=== PATIENT | male | born 1970 | race Caucasian/White ===

== ENCOUNTER → 2019-04-02 10:17 | Outpatient (CLI) | payer OTHER, SELFPAY ==
[2019-04-01 17:44] VITALS: BMI 65.6
== END ==
PROVIDERS: Referring Provider Physician Assistant; Visit Provider Physician Assistant
DX: T14.8XXA Other injury of unspecified body region, initial encounter (principal)
CPT/HCPCS: 87070; 87077; 87186; 87205

== ENCOUNTER 2020-07-02 09:15 | Outpatient (RCR) | payer OTHER, SELFPAY ==
[2019-04-01 17:44] VITALS: BMI 65.6
[2020-06-11 09:14] VITALS: BP 134/56; PULSE 50; RESP 24; TEMP 37; BMI 65.7
--- NOTE | 2020-06-11 12:21 | PCM.WC.HP ---
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 with fat layer exposed (2) Ulcer of lower extremity with fat layer exposed Status: Acute Qualifiers: Laterality: left Qualified Code(s): L97.922 - Non-pressure chronic ulcer of unspecified part of left lower leg with fat layer exposed Code(s): L97.902 - Non-pressure chronic ulcer of unspecified part of unspecified lower leg with fat layer exposed (3) Left leg cellulitis Status: Acute Code(s): L03.116 - Cellulitis of left lower limb (4) Morbid obesity with BMI of 60.0-69.9, adult Status: Acute Code(s): E66.01 - Morbid (severe) obesity due to excess calories; Z68.44 - Body mass index [BMI] 60.0-69.9, adult (5) Type 2 diabetes mellitus Status: Chronic Code(s): E11.9 - Type 2 diabetes mellitus without complications History of Present Illness Date of Service: 06/11/20 Chief Complaint: Non healing left lower extremity ulcer History of Wound: Mr. Spivey is a 49-year old who was referred to the wound center due to nonhealing right leg ulcers. Ulceration started after right lower extremity cellulitis. Currently on antibiotics. Measures at home have not been helpful. Reports lower extremity pain typically at the end of the day. Tried Tubigrip's for compression. At this time, denies chills, fever or otherwise feeling of unwell. Type 2 diabetes mellitus, recent A1c down from 8.2-7.2. Currently on Metformin which he reports compliance with. Past Medical History Past Medical History: Chronic Problems (Last Updated 04/01/19 @ 17:47 by Roz Medellin) Type 2 diabetes mellitus (Chronic) Allergies/Adverse Reactions: Allergies glipizide Adverse Reaction (Verified 06/11/20 09:39) Hives Home Medications: Ambulatory Orders Medication Instructions Recorded hydrochlorothiazide 25 mg tablet PO 04/01/19 losartan 100 mg tablet PO 04/01/19 metoprolol succinate 200 mg PO 04/01/19 tablet,extended release 24 hr naproxen sodium 220 mg capsule 220 mg PO BID PRN 04/01/19 spironolactone 50 mg tablet PO 04/01/19 Amoxicillin 875 mg PO BID 06/11/20 Bumetanide 2 mg PO 06/11/20 Gabapentin 300 mg PO 06/11/20 metFORMIN (XR) [Glucophage Xr] 1,000 mg PO BID 06/11/20 Smoking Status: Never smoker Review of Systems Constitutional: Denies: Anorexia, Chills, Fever, Malaise, Weakness Eyes: Denies: Blurred vision, Pain, Redness HEENT: Denies: Difficulty Hearing, Difficulty Swallowing, Eye Pain Cardiovascular: Denies: Chest Pain, Claudication, Orthopnea, Palpitations Respiratory: Denies: Cough, Hemoptysis, Pleuritic Pain Gastrointestinal: Denies: Abdominal Pain, Hematemesis, Vomiting Genitourinary: Denies: Hematuria - Physical Exam Vital Signs Temp Pulse Resp BP 98.6 F 50 L 24 H 134/56 H 06/11/20 09:14 06/11/20 09:14 06/11/20 09:14 06/11/20 09:14 General: Alert, Oriented x3, Cooperative, No apparent distress HEENT: Atraumatic, Normocephalic Oral: Moist Mucosa Neck: Supple, No JVD Lungs: Normal air movement Abdomen: Obese Extremities: No cyanosis, Edema Skin: Ulcer/ Wound Wound Measurements and Assessment WC - Nurse 1 - General Ulcer Measurement Start: 06/11/20 09:01 Freq: Status: Active Protocol: Activity Type Activity Date Activity User E-Sign Co-Sign Detail Recorded Client Recorded Date Recorded By Document 06/11/20 09:14 DL [id number] 06/11/20 09:35 DL 06/11/20 09:14 Wound Center Nurse 1 [Ulcer Assessment] #1 LLE Cluster -Current Size (cm) - Length 19 -Current Size (cm) - Width 19 -Current Size (cm) - Depth 0.1 -Total Square Cm 361 -Photo Taken Yes -Exudate Amt Medium -Exudate Type Serosanguineous -Wound Margin Indistinct, Non -Visible -Granulation Amt Medium (34-66%) -Granulation Quality Red -Necrosis Amt Medium (34-66%) -Necrotic Tissue Type Adherent Slough -Structure Exposed N/A -Texture (Erna-wound Skin Appearance) Localized Edema -Moisture (Erna-wound Skin Appearance Weeping ) -Color (Erna-wound Skin Appearance) Erythema, Hemosiderin Staining -Temperature (Erna-wound Skin No Abnormality Appearance) (Pt Warm) -Tenderness on Palpation (Erna-wound Yes Skin Appearance) -Ulcer Cleansing Wound Cleanser -Foul Odor after Cleansing No -Anesthetic Used 4% Lidocaine Solution [Edema Assessment] -Right Calf (cm) 52.5 -Right Ankle (cm) 29 -Left Calf (cm) 50.3 -Left Ankle (cm) 28.6 WC - Nurse 2 - General Ulcer CM Notes Start: 06/11/20 09:01 Freq: Status: Active Protocol: Activity Type Activity Date Activity User E-Sign Co-Sign Detail Recorded Client Recorded Date Recorded By Document 06/11/20 09:57 MW [id number] 06/11/20 10:04 MW 06/11/20 09:57 Wound Center Nurse 2 [Procedure/Treatment] #1 LLE Cluster -Time 09:58 -Correct Patient Yes -Correct Side, Site, Position Yes -Correct Procedure Yes -Procedure Performed Yes -Type of Procedure Debridement -Clinical Debridement Subcutaneous -Tissue Removed Subcutaneous -Post Debridement (cm) - Length 17.0 -Post Debridement (cm) - Width 20.0 -Post Debridement (cm) - Depth 0.1 -Total Square (Post) (cm) 340.00 -Area of Debridement (cm) - Length 17.0 -Area of Debridement (cm) - Width 20.0 -Total Square (Area) (cm) 340.00 -Tunneling No -Undermining/Tunneling No -Circular Undermining No -Wound/Ulcer Outcome Not Healed -Ulcer Cleansing Rinsed/ Irrigated with Saline -Foul Odor after Cleansing No -Bioengineered Tissue No -Bleeding Controlled with Pressure -Offloading No -Treatment Response Procedure Tolerated Well -Debridement - Subq, 1st 20sq cm Yes -Debridement, SubQ, ea addt'l 20sq cm 16 or part thereof [See Physician Procedure note for Specifics] Pain Scale: 0-10 Numeric [Pain] -Is Patient Pain Free? Yes RHIANNON - Nurse 3 - General Ulcer D/C NN Start: 06/11/20 09:01 Freq: Status: Active Protocol: Activity Type Activity Date Activity User E-Sign Co-Sign Detail Recorded Client Recorded Date Recorded By Document 06/11/20 10:19 MS [id number] 06/11/20 10:21 MS 06/11/20 10:19 Wound Care Nurse 3 [Wound Dressing] #1 LLE Cluster -Ulcer Cleansing Rinsed/ Irrigated with Saline -Primary Dressing Applied Aquacel Extra -Other Dressing xeroform,abd -Aquacel Extra 1 [Compression Applied] Left -Multi-Layered Wrap Application Multi-Layer Comp - Left ($) WC - Visit Discharge [Visit Discharge Information] -Discharge Condition Stable -Ambulatory Status Ambulatory -Medication Reconcilliation completed No & provided to patient/care provider -Clinical Summary of Care Provided Yes Musculoskeletal: No Muscle Wasting Neurological: Cranial nerves II-XII grossly intact Psych/Mental Status: Normal Affect Debridement Note Post-Debridement Measurements/Treatment - Nurse 2 - General Ulcer CM Notes Start: 06/11/20 09:01 Freq: Status: Active Protocol: Activity Type Activity Date Activity User E-Sign Co-Sign Detail Recorded Client Recorded Date Recorded By Document 06/11/20 09:57 MW [id number] 06/11/20 10:04 MW 06/11/20 09:57 Wound Center Nurse 2 #1 LLE Cluster -Time 09:58 -Correct Patient Yes -Correct Side, Site, Position Yes -Correct Procedure Yes -Procedure Performed Yes -Type of Procedure Debridement -Clinical Debridement Subcutaneous -Tissue Removed Subcutaneous -Post Debridement (cm) - Length 17.0 -Post Debridement (cm) - Width 20.0 -Post Debridement (cm) - Depth 0.1 -Total Square (Post) (cm) 340.00 -Area of Debridement (cm) - Length 17.0 -Area of Debridement (cm) - Width 20.0 -Total Square (Area) (cm) 340.00 -Tunneling No -Undermining/Tunneling No -Circular Undermining No -Wound/Ulcer Outcome Not Healed -Ulcer Cleansing Rinsed/ Irrigated with Saline -Foul Odor after Cleansing No -Bioengineered Tissue No -Bleeding Controlled with Pressure -Offloading No -Treatment Response Procedure Tolerated Well -Debridement - Subq, 1st 20sq cm Yes -Debridement, SubQ, ea addt'l 20sq cm 16 or part thereof Pain Scale: 0-10 Numeric Is Patient Pain Free? Yes - Nurse 3 - General Ulcer D/C NN Start: 06/11/20 09:01 Freq: Status: Active Protocol: Activity Type Activity Date Activity User E-Sign Co-Sign Detail Recorded Client Recorded Date Recorded By Document 06/11/20 10:19 MS [id number] 06/11/20 10:21 MS 06/11/20 10:19 Wound Care Nurse 3 #1 LLE Cluster -Ulcer Cleansing Rinsed/ Irrigated with Saline -Primary Dressing Applied Aquacel Extra -Other Dressing xeroform,abd -Aquacel Extra 1 Left -Multi-Layered Wrap Application Multi-Layer Comp - Left ($) WC - Visit Discharge Discharge Condition Stable Ambulatory Status Ambulatory Medication Reconcilliation completed & No provided to patient/care provider Clinical Summary of Care Provided Yes Wound debrided: Left leg cluster Type of Debridement: Excisional debridement Anesthesia Used: 4% Lidocaine Solution, 5% Lidocaine Gel Depth: Down to and including healthy tissue, in the subcutaneous layer Percentage of wound debrided: 100 Instrument Used: 5mm curette Tissue Removed: Slough and devitalized tissue Severity: Fat Layer Exposed Amount of bleeding with debridement: Mild Bleeding Controlled with: Pressure Patient tolerated procedure well Assessment/Plan Active Problems (Last Updated 04/01/19 @ 17:47 by Roz Medellin) Morbid obesity with BMI of 60.0-69.9, adult (Acute) Ulcer of lower extremity with fat layer exposed (Acute) Ulcer of left lower extremity with fat layer exposed (Acute) Left leg cellulitis (Acute) Assessment: Left lower extremity cluster ulcer secondary to left lower extremity cellulitis. Morbid obesity. Type 2 diabetes mellitus. Plan: Debridement done as documented above. Procedure was well-tolerated. Promogran with Adaptic over top. 3M wrap for edema management. Follow-up on Monday for nurse visit. Elevate lower extremities when seated and in bed. Exercise as tolerated. Increase protein intake, zinc and vitamin C. Optimal diabetes control recommended. His questions were answered and he was advised to call with any further questions or concerns. Follow-up in a week. This note was generated with [employer] dictation software. It may contain incorrect words, spelling, and punctuation that were not noted in checking the note before signing. Multi Select Codes - Visit Charges Office Visit/Consults: 95689 OV L3 New - Integumentary Integumentary CPT Codes: 35426 Faviola subq tissue 20 sq cm/< - Additional square centimeters debrided, please refer to clinical note.
[2020-06-15 11:05] VITALS: BP 139/49; PULSE 56; RESP 16; TEMP 35.5; BMI 65.7
[2020-06-18 08:55] VITALS: BP 120/45; PULSE 53; RESP 18; TEMP 36.4; BMI 65.7
--- NOTE | 2020-06-18 09:21 | PN.PCM_ITS ---
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 with fat layer exposed (2) Ulcer of lower extremity with fat layer exposed Status: Acute Qualifiers: Laterality: left Qualified Code(s): L97.922 - Non-pressure chronic ulcer of unspecified part of left lower leg with fat layer exposed Code(s): L97.902 - Non-pressure chronic ulcer of unspecified part of unspecified lower leg with fat layer exposed (3) Left leg cellulitis Status: Acute Code(s): L03.116 - Cellulitis of left lower limb (4) Morbid obesity with BMI of 60.0-69.9, adult Status: Acute Code(s): E66.01 - Morbid (severe) obesity due to excess calories; Z68.44 - Body mass index [BMI] 60.0-69.9, adult (5) Type 2 diabetes mellitus Status: Chronic Code(s): E11.9 - Type 2 diabetes mellitus without complications Type of Wound Date of Service: 06/18/20 Chief Complaint: Non healing left lower extremity ulcer History of Wound: Mr. Spivey is a 49-year old who was referred to the wound center due to nonhealing right leg ulcers. Ulceration started after right lower extremity cellulitis. Currently on antibiotics. Measures at home have not been helpful. Reports lower extremity pain typically at the end of the day. Tried Tubigrip's for compression. At this time, denies chills, fever or otherwise feeling of unwell. Type 2 diabetes mellitus, recent A1c down from 8.2-7.2. Currently on Metformin which he reports compliance with. Progress of Wound: Improving, no new concerns at this time. - Physical Exam Vital Signs Temp Pulse Resp BP 97.6 F L 53 L 18 120/45 L 06/18/20 08:55 06/18/20 08:55 06/18/20 08:55 06/18/20 08:55 General: Alert, Oriented x3, Cooperative, No apparent distress HEENT: Atraumatic, Normocephalic Oral: Moist Mucosa Neck: Supple Lungs: Normal air movement Abdomen: Non Tender, Obese Extremities: No cyanosis, Edema Skin: Ulcer/ Wound Wound Measurements and Assessment WC - Nurse 1 - General Ulcer Measurement Start: 06/11/20 09:01 Freq: Status: Active Protocol: Activity Type Activity Date Activity User E-Sign Co-Sign Detail Recorded Client Recorded Date Recorded By Document 06/15/20 11:05 [facility] [id number] 06/15/20 11:07 [facility] Document 06/18/20 08:55 MS [id number] 06/18/20 09:04 MS 06/15/20 06/18/20 11:05 08:55 [Ulcer Assessment] #1 LLE Cluster -Current Size (cm) - Length 12 -Current Size (cm) - Width 14 -Current Size (cm) - Depth 0.1 -Total Square Cm 168 -Exudate Amt Small -Exudate Type Serosanguineous -Granulation Amt Medium (34-66%) -Necrosis Amt Medium (34-66%) -Texture (Erna-wound Skin Appearance) No Abnormality -Moisture (Erna-wound Skin Appearance No Abnormality ) -Color (Erna-wound Skin Appearance) No Abnormality -Temperature (Erna-wound Skin No Abnormality Appearance) (Pt Warm) -Tenderness on Palpation (Erna-wound No Skin Appearance) -Ulcer Cleansing Wound Cleanser -Foul Odor after Cleansing No -Anesthetic Used 4% Lidocaine Solution Wound Center Nurse 1 [Edema Assessment] -Lower Limb Edema Present Yes -Left Calf (cm) 54.8 52 -Left Ankle (cm) 27.5 25 WC - Nurse 2 - General Ulcer CM Notes Start: 06/11/20 09:01 Freq: Status: Active Protocol: Activity Type Activity Date Activity User E-Sign Co-Sign Detail Recorded Client Recorded Date Recorded By Document 06/18/20 09:16 MW [id number] 06/18/20 09:19 MW 06/18/20 09:16 Wound Center Nurse 2 [Procedure/Treatment] #1 LLE Cluster -Time 09:16 -Correct Patient Yes -Correct Side, Site, Position Yes -Correct Procedure Yes -Procedure Performed Yes -Type of Procedure Debridement -Clinical Debridement Subcutaneous -Tissue Removed Subcutaneous -Post Debridement (cm) - Length 17.0 -Post Debridement (cm) - Width 10.0 -Post Debridement (cm) - Depth 0.1 -Total Square (Post) (cm) 170.00 -Area of Debridement (cm) - Length 17.0 -Area of Debridement (cm) - Width 10.0 -Total Square (Area) (cm) 170.00 -Tunneling No -Undermining/Tunneling No -Circular Undermining No -Wound/Ulcer Outcome Not Healed -Ulcer Cleansing Rinsed/ Irrigated with Saline -Foul Odor after Cleansing No -Bioengineered Tissue No -Bleeding Controlled with Pressure -Offloading No -Treatment Response Procedure Tolerated Well -Debridement - Subq, 1st 20sq cm Yes -Debridement, SubQ, ea addt'l 20sq cm 8 or part thereof [See Physician Procedure note for Specifics] Pain Scale: 0-10 Numeric [Pain] -Is Patient Pain Free? Yes - Nurse 3 - General Ulcer D/C NN Start: 06/11/20 09:01 Freq: Status: Active Protocol: Activity Type Activity Date Activity User E-Sign Co-Sign Detail Recorded Client Recorded Date Recorded By Document 06/15/20 11:05 [facility] [id number] 06/15/20 11:07 [facility] 06/15/20 11:05 Vital Signs [Temperature Protocol: VS] -Temperature (97.8 F-99.1 F) 95.9 F L -Temperature Source Temporal [Pulse] -Pulse Rate (60-100 beats/min) 56 L -Pulse Location Monitor [Respirations] -Respiratory Rate (12-18 breaths/min) 16 -Respiratory rate source Observation -Oxygen Delivery Method Room Air [Blood Pressure] -Blood Pressure (90/60-120/80 mm Hg) 139/49 H -Blood Pressure Mean (mm Hg) 79 -Source Monitor -Position Sitting -Blood Pressure Location Left Arm Pain Scale: 0-10 Numeric [Pain] -Is Patient Pain Free? Yes Wound Care Nurse 3 [Wound Dressing] #1 LLE Cluster -Ulcer Cleansing soapy water -Foul Odor after Cleansing No -Primary Dressing Applied Aquacel Extra, NonAdherent Contact Layer -Other Dressing xeroform to reddened areas -Primary Dressing Covered/Secured Dry Gauze,Other with -Other Covering abd -Aquacel Extra 1 [Compression Applied] Left -Multi-Layered Wrap Application Multi-Layer Comp - Left ($) [Post Procedure Tolerated] -Treatment Response Procedure Tolerated Well WC - Visit Discharge [Visit Discharge Information] -Discharge Condition Stable -Ambulatory Status Ambulatory -Transportation Private Auto Musculoskeletal: No Muscle Wasting Neurological: Cranial nerves II-XII grossly intact Psych/Mental Status: Normal Affect Debridement Note Post-Debridement Measurements/Treatment - Nurse 2 - General Ulcer CM Notes Start: 06/11/20 09:01 Freq: Status: Active Protocol: Activity Type Activity Date Activity User E-Sign Co-Sign Detail Recorded Client Recorded Date Recorded By Document 06/11/20 09:57 MW [id number] 06/11/20 10:04 MW Document 06/18/20 09:16 MW [id number] 06/18/20 09:19 MW 06/11/20 06/18/20 09:57 09:16 Wound Center Nurse 2 #1 LLE Cluster -Time 09:58 09:16 -Correct Patient Yes Yes -Correct Side, Site, Position Yes Yes -Correct Procedure Yes Yes -Procedure Performed Yes Yes -Type of Procedure Debridement Debridement -Clinical Debridement Subcutaneous Subcutaneous -Tissue Removed Subcutaneous Subcutaneous -Post Debridement (cm) - Length 17.0 17.0 -Post Debridement (cm) - Width 20.0 10.0 -Post Debridement (cm) - Depth 0.1 0.1 -Total Square (Post) (cm) 340.00 170.00 -Area of Debridement (cm) - Length 17.0 17.0 -Area of Debridement (cm) - Width 20.0 10.0 -Total Square (Area) (cm) 340.00 170.00 -Tunneling No No -Undermining/Tunneling No No -Circular Undermining No No -Wound/Ulcer Outcome Not Healed Not Healed -Ulcer Cleansing Rinsed/ Rinsed/ Irrigated with Irrigated with Saline Saline -Foul Odor after Cleansing No No -Bioengineered Tissue No No -Bleeding Controlled with Pressure Pressure -Offloading No No -Treatment Response Procedure Procedure Tolerated Well Tolerated Well -Debridement - Subq, 1st 20sq cm Yes Yes -Debridement, SubQ, ea addt'l 20sq cm 16 8 or part thereof Pain Scale: 0-10 Numeric Is Patient Pain Free? Yes Yes WC - Nurse 3 - General Ulcer D/C NN Start: 06/11/20 09:01 Freq: Status: Active Protocol: Activity Type Activity Date Activity User E-Sign Co-Sign Detail Recorded Client Recorded Date Recorded By Document 06/11/20 10:19 MS [id number] 06/11/20 10:21 MS Document 06/15/20 11:05 [facility] [id number] 06/15/20 11:07 [facility] 06/11/20 06/15/20 10:19 11:05 Wound Care Nurse 3 #1 LLE Cluster -Ulcer Cleansing Rinsed/ soapy water Irrigated with Saline -Foul Odor after Cleansing No -Primary Dressing Applied Aquacel Extra Aquacel Extra, NonAdherent Contact Layer -Other Dressing xeroform,abd xeroform to reddened areas -Primary Dressing Covered/Secured with Dry Gauze,Other -Other Covering abd -Aquacel Extra 1 1 Left -Multi-Layered Wrap Application Multi-Layer Multi-Layer Comp - Left ($) Comp - Left ($) Treatment Response Procedure Tolerated Well Vital Signs Temperature (97.8 F-99.1 F) 95.9 F L Temperature Source Temporal Pulse Rate (60-100 beats/min) 56 L Pulse Location Monitor Respiratory Rate (12-18 breaths/min) 16 Respiratory rate source Observation Oxygen Delivery Method Room Air Blood Pressure (90/60-120/80 mm Hg) 139/49 H Blood Pressure Mean (mm Hg) 79 Source Monitor Position Sitting Blood Pressure Location Left Arm Pain Scale: 0-10 Numeric Is Patient Pain Free? Yes WC - Visit Discharge Discharge Condition Stable Stable Ambulatory Status Ambulatory Ambulatory Transportation Private Auto Medication Reconcilliation completed & No provided to patient/care provider Clinical Summary of Care Provided Yes Wound debrided: Lower extremity cluster Type of Debridement: Excisional debridement Anesthesia Used: 4% Lidocaine Solution Depth: Down to and including healthy tissue, in the subcutaneous layer Percentage of wound debrided: 100 Instrument Used: 5mm curette Tissue Removed: Slough and devitalized tissue Severity: Fat Layer Exposed Amount of bleeding with debridement: Mild Bleeding Controlled with: Pressure Patient tolerated procedure well Assessment/Plan Active Problems (Last Updated 04/01/19 @ 17:47 by Roz Medellin) Morbid obesity with BMI of 60.0-69.9, adult (Acute) Ulcer of lower extremity with fat layer exposed (Acute) Ulcer of left lower extremity with fat layer exposed (Acute) Left leg cellulitis (Acute) Type 2 diabetes mellitus (Chronic) Assessment: Left lower extremity cluster ulcer secondary to left lower extremity cellulitis. Morbid obesity. Type 2 diabetes mellitus. Plan: Debridement done as documented above. Procedure was well-tolerated. Promogran with Xeroform to reddened areas. 3M wrap for edema management. Elevate lower extremities when seated and in bed. Exercise as tolerated. Increase protein intake, zinc and vitamin C. Optimal diabetes control recommended. His questions were answered and he was advised to call with any further questions or concerns. Follow-up in a week. This note was generated with [employer] software. It may contain incorrect words, spelling, and punctuation that were not noted in checking the note before signing. [id number]: [id number] Faviola subq tissue 20 sq cm/< Add On Codes: 83117 Faviola subq tissue add-on
[2020-06-25 10:05] VITALS: BP 128/74; PULSE 59; TEMP 36.2; BMI 65.7
--- NOTE | 2020-06-25 11:13 | PCM.WC.PN ---
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 with fat layer exposed (2) Ulcer of lower extremity with fat layer exposed Status: Acute Qualifiers: Laterality: left Qualified Code(s): L97.922 - Non-pressure chronic ulcer of unspecified part of left lower leg with fat layer exposed Code(s): L97.902 - Non-pressure chronic ulcer of unspecified part of unspecified lower leg with fat layer exposed (3) Left leg cellulitis Status: Acute Code(s): L03.116 - Cellulitis of left lower limb (4) Morbid obesity with BMI of 60.0-69.9, adult Status: Acute Code(s): E66.01 - Morbid (severe) obesity due to excess calories; Z68.44 - Body mass index [BMI] 60.0-69.9, adult (5) Type 2 diabetes mellitus Status: Chronic Code(s): E11.9 - Type 2 diabetes mellitus without complications Type of Wound Date of Service: 06/25/20 Chief Complaint: Non healing left lower extremity ulcer History of Wound: Mr. Spivey is a 49-year old who was referred to the wound center due to nonhealing right leg ulcers. Ulceration started after right lower extremity cellulitis. Currently on antibiotics. Measures at home have not been helpful. Reports lower extremity pain typically at the end of the day. Tried Tubigrip's for compression. At this time, denies chills, fever or otherwise feeling of unwell. Type 2 diabetes mellitus, recent A1c down from 8.2-7.2. Currently on Metformin which he reports compliance with. Progress of Wound: Improving, no new concerns at this time. Minimal area left - Physical Exam Vital Signs Temp Pulse Resp BP 97.2 F L 59 L 18 128/74 H 06/25/20 10:05 06/25/20 10:05 06/18/20 08:55 06/25/20 10:05 General: Alert, Oriented x3, Cooperative, No apparent distress HEENT: Atraumatic, Normocephalic Oral: Moist Mucosa Neck: Supple Lungs: Normal air movement Abdomen: Non Tender, Obese Extremities: No cyanosis, Edema Skin: Ulcer/ Wound Wound Measurements and Assessment WC - Nurse 1 - General Ulcer Measurement Start: 06/11/20 09:01 Freq: Status: Active Protocol: Activity Type Activity Date Activity User E-Sign Co-Sign Detail Recorded Client Recorded Date Recorded By Document 06/25/20 10:05 KR [id number] 06/25/20 10:13 KR 06/25/20 10:05 Wound Center Nurse 1 [Ulcer Assessment] #1 LLE Cluster -Current Size (cm) - Length 12 -Current Size (cm) - Width 8 -Current Size (cm) - Depth 0.1 -Total Square Cm 96 -Exudate Amt None Present -Wound Margin Distinct, Outline Attached -Granulation Amt Large (67-100%) -Granulation Quality Red -Necrosis Amt None Present (0 %) -Texture (Erna-wound Skin Appearance) Assessed -Moisture (Erna-wound Skin Appearance No Abnormality, ) Assessed -Color (Erna-wound Skin Appearance) No Abnormality, Assessed -Temperature (Erna-wound Skin No Abnormality Appearance) (Pt Warm) -Tenderness on Palpation (Erna-wound No Skin Appearance) -Ulcer Cleansing soap and water -Foul Odor after Cleansing No -Anesthetic Used 4% Lidocaine Solution [Edema Assessment] -Left Calf (cm) 51 -Left Ankle (cm) 32 WC - Nurse 2 - General Ulcer CM Notes Start: 06/11/20 09:01 Freq: Status: Active Protocol: Activity Type Activity Date Activity User E-Sign Co-Sign Detail Recorded Client Recorded Date Recorded By Document 06/25/20 10:38 MW [id number] 06/25/20 10:39 MW 06/25/20 10:38 Wound Center Nurse 2 [Procedure/Treatment] #1 LLE Cluster -Time 10:38 -Correct Patient Yes -Correct Side, Site, Position Yes -Correct Procedure Yes -Procedure Performed No -Tunneling No -Undermining/Tunneling No -Circular Undermining No -Wound/Ulcer Outcome Not Healed [See Physician Procedure note for Specifics] Pain Scale: 0-10 Numeric [Pain] -Is Patient Pain Free? Yes Musculoskeletal: No Muscle Wasting Neurological: Cranial nerves II-XII grossly intact Psych/Mental Status: Normal Affect Debridement Note Post-Debridement Measurements/Treatment WC - Nurse 2 - General Ulcer CM Notes Start: 06/11/20 09:01 Freq: Status: Active Protocol: Activity Type Activity Date Activity User E-Sign Co-Sign Detail Recorded Client Recorded Date Recorded By Document 06/11/20 09:57 MW [id number] 06/11/20 10:04 MW Document 06/18/20 09:16 MW [id number] 06/18/20 09:19 MW Document 06/25/20 10:38 MW [id number] 06/25/20 10:39 MW 06/11/20 06/18/20 06/25/20 09:57 09:16 10:38 Wound Center Nurse 2 #1 LLE Cluster -Time 09:58 09:16 10:38 -Correct Patient Yes Yes Yes -Correct Side, Site, Position Yes Yes Yes -Correct Procedure Yes Yes Yes -Procedure Performed Yes Yes No -Type of Procedure Debridement Debridement -Clinical Debridement Subcutaneous Subcutaneous -Tissue Removed Subcutaneous Subcutaneous -Post Debridement (cm) - Length 17.0 17.0 -Post Debridement (cm) - Width 20.0 10.0 -Post Debridement (cm) - Depth 0.1 0.1 -Total Square (Post) (cm) 340.00 170.00 -Area of Debridement (cm) - Length 17.0 17.0 -Area of Debridement (cm) - Width 20.0 10.0 -Total Square (Area) (cm) 340.00 170.00 -Tunneling No No No -Undermining/Tunneling No No No -Circular Undermining No No No -Wound/Ulcer Outcome Not Healed Not Healed Not Healed -Ulcer Cleansing Rinsed/ Rinsed/ Irrigated with Irrigated with Saline Saline -Foul Odor after Cleansing No No -Bioengineered Tissue No No -Bleeding Controlled with Pressure Pressure -Offloading No No -Treatment Response Procedure Procedure Tolerated Well Tolerated Well -Debridement - Subq, 1st 20sq cm Yes Yes -Debridement, SubQ, ea addt'l 20sq cm 16 8 or part thereof Pain Scale: 0-10 Numeric Is Patient Pain Free? Yes Yes Yes WC - Nurse 3 - General Ulcer D/C NN Start: 06/11/20 09:01 Freq: Status: Active Protocol: Activity Type Activity Date Activity User E-Sign Co-Sign Detail Recorded Client Recorded Date Recorded By Document 06/11/20 10:19 MS [id number] 06/11/20 10:21 MS Document 06/15/20 11:05 BM [id number] 06/15/20 11:07 BMF Document 06/18/20 09:45 MT [id number] 06/18/20 09:47 MT 06/11/20 06/15/20 06/18/20 10:19 11:05 09:45 Wound Care Nurse 3 #1 LLE Cluster -Ulcer Cleansing Rinsed/ soapy water Rinsed/ Irrigated with Irrigated with Saline Saline -Foul Odor after Cleansing No -Primary Dressing Applied Aquacel Extra Aquacel Extra, Aquacel Extra NonAdherent Contact Layer -Other Dressing xeroform,abd xeroform to xeroform reddened areas -Primary Dressing Covered/Secured with Dry Gauze,Other Secured with Tape -Other Covering abd -Aquacel Extra 1 1 1 Left -Multi-Layered Wrap Application Multi-Layer Multi-Layer Multi-Layer Comp - Left ($) Comp - Left ($) Comp - Left ($) Treatment Response Procedure Tolerated Well Vital Signs Temperature (97.8 F-99.1 F) 95.9 F L Temperature Source Temporal Pulse Rate (60-100 beats/min) 56 L Pulse Location Monitor Respiratory Rate (12-18 breaths/min) 16 Respiratory rate source Observation Oxygen Delivery Method Room Air Blood Pressure (90/60-120/80 mm Hg) 139/49 H Blood Pressure Mean (mm Hg) 79 Source Monitor Position Sitting Blood Pressure Location Left Arm Pain Scale: 0-10 Numeric Is Patient Pain Free? Yes WC - Visit Discharge Discharge Condition Stable Stable Stable Ambulatory Status Ambulatory Ambulatory Ambulatory Transportation Private Auto Private Auto Medication Reconcilliation completed & No No provided to patient/care provider Clinical Summary of Care Provided Yes Yes Notes: keep 3m clean and dry. cover when shower, call if their are any issues. No debridement was completed today Assessment/Plan Active Problems (Last Updated 04/01/19 @ 17:47 by Roz Medellin) Morbid obesity with BMI of 60.0-69.9, adult (Acute) Ulcer of lower extremity with fat layer exposed (Acute) Ulcer of left lower extremity with fat layer exposed (Acute) Left leg cellulitis (Acute) Type 2 diabetes mellitus (Chronic) Assessment: Left lower extremity cluster ulcer secondary to left lower extremity cellulitis. Morbid obesity. Type 2 diabetes mellitus. Plan: Minimal area left, no debridement completed today. Moisturize lower extremity adequately. Adaptic and gauze with 3M wrap for edema management. Elevate lower extremities when seated and in bed. Exercise as tolerated. Increase protein intake, zinc and vitamin C. Optimal diabetes control recommended. His questions were answered and he was advised to call with any further questions or concerns. Follow-up in a week. This note was generated with [employer] dictation software. It may contain incorrect words, spelling, and punctuation that were not noted in checking the note before signing. Office Visits / Consults: [id number] OV L3 Est
[2020-07-02 09:14] VITALS: BP 122/38; PULSE 48; RESP 22; TEMP 36.3; BMI 65.7
--- NOTE | 2020-07-02 10:33 | PCM.WC.PN ---
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 with fat layer exposed (2) Ulcer of lower extremity with fat layer exposed Status: Acute Qualifiers: Laterality: left Qualified Code(s): L97.922 - Non-pressure chronic ulcer of unspecified part of left lower leg with fat layer exposed Code(s): L97.902 - Non-pressure chronic ulcer of unspecified part of unspecified lower leg with fat layer exposed (3) Left leg cellulitis Status: Acute Code(s): L03.116 - Cellulitis of left lower limb (4) Morbid obesity with BMI of 60.0-69.9, adult Status: Acute Code(s): E66.01 - Morbid (severe) obesity due to excess calories; Z68.44 - Body mass index [BMI] 60.0-69.9, adult (5) Type 2 diabetes mellitus Status: Chronic Code(s): E11.9 - Type 2 diabetes mellitus without complications Type of Wound Date of Service: 07/02/20 Chief Complaint: Non healing left lower extremity ulcer History of Wound: Mr. Spivey is a 49-year old who was referred to the wound center due to nonhealing right leg ulcers. Ulceration started after right lower extremity cellulitis. Currently on antibiotics. Measures at home have not been helpful. Reports lower extremity pain typically at the end of the day. Tried Tubigrip's for compression. At this time, denies chills, fever or otherwise feeling of unwell. Type 2 diabetes mellitus, recent A1c down from 8.2-7.2. Currently on Metformin which he reports compliance with. Progress of Wound: Healed. No new concerns at this time. - Physical Exam Vital Signs Temp Pulse Resp BP 97.3 F L 48 L 22 H 122/38 H 07/02/20 09:14 07/02/20 09:14 07/02/20 09:14 07/02/20 09:14 General: Alert, Oriented x3, Cooperative, No apparent distress HEENT: Atraumatic, Normocephalic Oral: Moist Mucosa Neck: Supple Lungs: Normal air movement Abdomen: Obese Extremities: No cyanosis, Edema Wound Measurements and Assessment WC - Nurse 1 - General Ulcer Measurement Start: 06/11/20 09:01 Freq: Status: Discharge Protocol: Activity Type Activity Date Activity User E-Sign Co-Sign Detail Recorded Client Recorded Date Recorded By Document 07/02/20 09:14 DL [id number] 07/02/20 09:26 DL Edit Status 07/02/20 10:07 BKG DAEMON Active=>Discharge [facility] 07/02/20 10:07 BKG DAEMON 07/02/20 09:14 Wound Center Nurse 1 [Ulcer Assessment] #1 LLE Cluster -Current Size (cm) - Length 0 -Current Size (cm) - Width 0 -Current Size (cm) - Depth 0 -Total Square Cm 0 -Photo Taken Yes -Exudate Amt None Present -Wound Margin Flat & Intact -Granulation Amt None Present (0 %) -Granulation Quality [place] -Necrosis Amt None Present (0 %) -Structure Exposed N/A -Moisture (Erna-wound Skin Appearance Dry/Scaly ) -Color (Erna-wound Skin Appearance) Hemosiderin Staining -Temperature (Erna-wound Skin No Abnormality Appearance) (Pt Warm) -Tenderness on Palpation (Erna-wound No Skin Appearance) -Ulcer Cleansing Wound Cleanser -Foul Odor after Cleansing No -Anesthetic Used 4% Lidocaine Solution [Edema Assessment] -Right Calf (cm) 54 -Right Ankle (cm) 27.5 WC - Nurse 2 - General Ulcer CM Notes Start: 06/11/20 09:01 Freq: Status: Discharge Protocol: Activity Type Activity Date Activity User E-Sign Co-Sign Detail Recorded Client Recorded Date Recorded By Document 07/02/20 09:48 MW [id number] 07/02/20 09:49 MW Edit Status 07/02/20 10:07 BKG DAEMON Active=>Discharge [facility] 07/02/20 10:07 BKG DAEMON 07/02/20 09:48 Wound Center Nurse 2 [Procedure/Treatment] #1 LLE Cluster -Time 09:48 -Correct Patient Yes -Correct Side, Site, Position Yes -Correct Procedure Yes -Procedure Performed No -Post Debridement (cm) - Length 0 -Post Debridement (cm) - Width 0 -Post Debridement (cm) - Depth 0 -Total Square (Post) (cm) 0 -Wound/Ulcer Outcome Healed- Epithelialized [See Physician Procedure note for Specifics] WC - Nurse 3 - General Ulcer D/C NN Start: 06/11/20 09:01 Freq: Status: Discharge Protocol: Activity Type Activity Date Activity User E-Sign Co-Sign Detail Recorded Client Recorded Date Recorded By Document 07/02/20 09:49 MW [id number] 07/02/20 09:49 MW Edit Status 07/02/20 10:07 BKG DAEMON Active=>Discharge [id number] 07/02/20 10:07 BKG DAEMON 07/02/20 09:49 Wound Care Nurse 3 [Post Procedure Tolerated] -Treatment Response Procedure Tolerated Well Pain Scale: 0-10 Numeric [Pain] -Is Patient Pain Free? Yes Teaching: Wound Center [Wound Center Education] (Items with an * have Printed Materials Available- Please identify what is given to patient under the Teaching materials given to patient and caregiver Section. Discharge Instructions -Person Taught Patient -Teaching Method Discussion -Response to teaching Verbalize understanding WC - Visit Discharge [Visit Discharge Information] -Discharge Condition Stable -Ambulatory Status Ambulatory -Transportation Private Auto -Accompanied by self -Medication Reconcilliation completed No & provided to patient/care provider -Clinical Summary of Care Provided Yes Musculoskeletal: No Muscle Wasting Neurological: Cranial nerves II-XII grossly intact Psych/Mental Status: Normal Affect Debridement Note Post-Debridement Measurements/Treatment WC - Nurse 2 - General Ulcer CM Notes Start: 06/11/20 09:01 Freq: Status: Discharge Protocol: Activity Type Activity Date Activity User E-Sign Co-Sign Detail Recorded Client Recorded Date Recorded By Document 06/11/20 09:57 MW [id number] 06/11/20 10:04 MW Document 06/18/20 09:16 MW [id number] 06/18/20 09:19 MW Document 06/25/20 10:38 MW [id number] 06/25/20 10:39 MW Document 07/02/20 09:48 MW [id number] 07/02/20 09:49 MW 06/11/20 06/18/20 06/25/20 09:57 09:16 10:38 Wound Center Nurse 2 #1 LLE Cluster -Time 09:58 09:16 10:38 -Correct Patient Yes Yes Yes -Correct Side, Site, Position Yes Yes Yes -Correct Procedure Yes Yes Yes -Procedure Performed Yes Yes No -Type of Procedure Debridement Debridement -Clinical Debridement Subcutaneous Subcutaneous -Tissue Removed Subcutaneous Subcutaneous -Post Debridement (cm) - Length 17.0 17.0 -Post Debridement (cm) - Width 20.0 10.0 -Post Debridement (cm) - Depth 0.1 0.1 -Total Square (Post) (cm) 340.00 170.00 -Area of Debridement (cm) - Length 17.0 17.0 -Area of Debridement (cm) - Width 20.0 10.0 -Total Square (Area) (cm) 340.00 170.00 -Tunneling No No No -Undermining/Tunneling No No No -Circular Undermining No No No -Wound/Ulcer Outcome Not Healed Not Healed Not Healed -Ulcer Cleansing Rinsed/ Rinsed/ Irrigated with Irrigated with Saline Saline -Foul Odor after Cleansing No No -Bioengineered Tissue No No -Bleeding Controlled with Pressure Pressure -Offloading No No -Treatment Response Procedure Procedure Tolerated Well Tolerated Well -Debridement - Subq, 1st 20sq cm Yes Yes -Debridement, SubQ, ea addt'l 20sq cm 16 8 or part thereof Pain Scale: 0-10 Numeric Is Patient Pain Free? Yes Yes Yes 07/02/20 09:48 Wound Center Nurse 2 #1 LLE Cluster -Time 09:48 -Correct Patient Yes -Correct Side, Site, Position Yes -Correct Procedure Yes -Procedure Performed No -Type of Procedure -Clinical Debridement -Tissue Removed -Post Debridement (cm) - Length 0 -Post Debridement (cm) - Width 0 -Post Debridement (cm) - Depth 0 -Total Square (Post) (cm) 0 -Area of Debridement (cm) - Length -Area of Debridement (cm) - Width -Total Square (Area) (cm) -Tunneling -Undermining/Tunneling -Circular Undermining -Wound/Ulcer Outcome Healed- Epithelialized -Ulcer Cleansing -Foul Odor after Cleansing -Bioengineered Tissue -Bleeding Controlled with -Offloading -Treatment Response -Debridement - Subq, 1st 20sq cm -Debridement, SubQ, ea addt'l 20sq cm or part thereof Pain Scale: 0-10 Numeric Is Patient Pain Free? WC - Nurse 3 - General Ulcer D/C NN Start: 06/11/20 09:01 Freq: Status: Discharge Protocol: Activity Type Activity Date Activity User E-Sign Co-Sign Detail Recorded Client Recorded Date Recorded By Document 06/11/20 10:19 MS [id number] 06/11/20 10:21 MS Document 06/15/20 11:05 [facility] [id number] 06/15/20 11:07 BM Document 06/18/20 09:45 MT [id number] 06/18/20 09:47 MT Document 06/25/20 10:35 PL [id number] 06/26/20 06:51 PL Document 07/02/20 09:49 MW [id number] 07/02/20 09:49 MW 06/11/20 06/15/20 06/18/20 10:19 11:05 09:45 Wound Care Nurse 3 #1 LLE Cluster -Ulcer Cleansing Rinsed/ soapy water Rinsed/ Irrigated with Irrigated with Saline Saline -Foul Odor after Cleansing No -Primary Dressing Applied Aquacel Extra Aquacel Extra, Aquacel Extra NonAdherent Contact Layer -Other Dressing xeroform,abd xeroform to xeroform reddened areas -Primary Dressing Covered/Secured with Dry Gauze,Other Secured with Tape -Other Covering abd -Aquacel Extra 1 1 1 Left -Multi-Layered Wrap Application Multi-Layer Multi-Layer Multi-Layer Comp - Left ($) Comp - Left ($) Comp - Left ($) Treatment Response Procedure Tolerated Well Vital Signs Temperature (97.8 F-99.1 F) 95.9 F L Temperature Source Temporal Pulse Rate (60-100 beats/min) 56 L Pulse Location Monitor Respiratory Rate (12-18 breaths/min) 16 Respiratory rate source Observation Oxygen Delivery Method Room Air Blood Pressure (90/60-120/80 mm Hg) 139/49 H Blood Pressure Mean (mm Hg) 79 Source Monitor Position Sitting Blood Pressure Location Left Arm Pain Scale: 0-10 Numeric Is Patient Pain Free? Yes Teaching: Wound Center Discharge Instructions -Person Taught -Teaching Method -Response to teaching WC - Visit Discharge Discharge Condition Stable Stable Stable Ambulatory Status Ambulatory Ambulatory Ambulatory Transportation Private Auto Private Auto Accompanied by Medication Reconcilliation completed & No No provided to patient/care provider Clinical Summary of Care Provided Yes Yes Notes: keep 3m clean and dry. cover when shower, call if their are any issues. 06/25/20 07/02/20 10:35 09:49 Wound Care Nurse 3 #1 LLE Cluster -Ulcer Cleansing -Foul Odor after Cleansing -Primary Dressing Applied -Other Dressing -Primary Dressing Covered/Secured with -Other Covering -Aquacel Extra Left -Multi-Layered Wrap Application Multi-Layer Comp - Left ($) Treatment Response Procedure Tolerated Well Vital Signs Temperature (97.8 F-99.1 F) Temperature Source Pulse Rate (60-100 beats/min) Pulse Location Respiratory Rate (12-18 breaths/min) Respiratory rate source Oxygen Delivery Method Blood Pressure (90/60-120/80 mm Hg) Blood Pressure Mean (mm Hg) Source Position Blood Pressure Location Pain Scale: 0-10 Numeric Is Patient Pain Free? Yes Teaching: Wound Center Discharge Instructions -Person Taught Patient -Teaching Method Discussion -Response to teaching Verbalize understanding WC - Visit Discharge Discharge Condition Stable Ambulatory Status Ambulatory Transportation Private Auto Accompanied by self Medication Reconcilliation completed & No provided to patient/care provider Clinical Summary of Care Provided Yes Notes: No debridement was completed today Assessment/Plan Active Problems (Last Updated 04/01/19 @ 17:47 by Roz Medellin) Morbid obesity with BMI of 60.0-69.9, adult (Acute) Ulcer of lower extremity with fat layer exposed (Acute) Ulcer of left lower extremity with fat layer exposed (Acute) Left leg cellulitis (Acute) Type 2 diabetes mellitus (Chronic) Assessment: Left lower extremity cluster ulcer secondary to left lower extremity cellulitis. Morbid obesity. Type 2 diabetes mellitus. Plan: Healed. No new concerns at this time. Lengthy discussion had with patient, Compression very strongly recommended. Double layer Tubi for now until compression hose are available. Plans to get this at [facility]. Exercise as tolerated. Increase protein intake, zinc and vitamin C. Optimal diabetes control recommended. His questions were answered and he was advised to call with any further questions or concerns. Discharge from wound center. This note was generated with [employer] dictation software. It may contain incorrect words, spelling, and punctuation that were not noted in checking the note before signing. Office Visits / Consults: [id number] OV L3 Est
== END 2020-07-02 10:07 | disposition home or self-care (01) ==
LOC: WC 09:15
PROVIDERS: PCP Nurse Practitioner Family; Referring Provider Nurse Practitioner Primary Care; Visit Provider Internal Medicine
DX: E11.622 Type 2 diabetes mellitus with other skin ulcer (principal); E66.01 Morbid (severe) obesity due to excess calories; Z68.44 Body mass index [BMI] 60.0-69.9, adult; L03.116 Cellulitis of left lower limb; L97.822 Non-pressure chronic ulcer of other part of left lower leg with fat layer exposed; Z79.899 Other long term (current) drug therapy; Z79.84 Long term (current) use of oral hypoglycemic drugs; R60.9 Edema, unspecified
CPT/HCPCS: 11042; 11045; 29581; 99203; 99213; G0463

== ENCOUNTER → 2024-07-24 | Outpatient (CLI) | payer OTHER, SELFPAY ==
--- NOTE | 2024-07-24 11:53 | STRESSREP_ITS ---
Stress Test Report Date: 07/24/2024 Procedure: Pharmacologic stress nuclear imaging study Indications: Cardiomyopathy Consent: Per the patient Procedure: The patient underwent pharmacologic (Regadenoson 0.4mg ) evaluation with a peak heart rate of 96 beats per minute (57%predicted maximal heart rate) and a peak blood pressure of 126/80 mmHg. The baseline ECG demonstrated sinus rhythm with left bundle branch block. The peak pharmacologic ECG was nondiagnostic secondary to baseline abnormality. There were no cardiac dysrhythmias pretest, during pharmacologic infusion, or recovery. There was no complaint of chest discomfort during pharmacologic infusion or recovery. The patient was injected with 15.4 millicuries of technetium 99m Cardiolite and subsequently rest SPECT Cardiolite nuclear imaging was obtained in the horizontal long, vertical long, and short axis views. The patient underwent pharmacologic (Regadenoson) evaluation. The patient was injected with 45.0 millicuries of technetium 99m Cardiolite and subsequently stress SPECT Cardiolite nuclear imaging was obtained in the horizontal long, vertical long, and short axis views. A gated Cardiolite study at peak stress was obtained. The examination was stopped secondary to completion of protocol. Rest and stress SPECT Cardiolite nuclear imaging status post realignment, n ormalization, and attenuation correction demonstrate small fixed apical defect, likely attenuation artifact. The left ventricular cavity appears dilated. Gated images showed generalized LV hypokinesis with estimated LVEF 39%. Impression: 1. Pharmacologic (Regadenoson) evaluation. 2. Peak pharmacologic ECG nondiagnostic. 3. There were no cardiac dysrhythmias pretest, during pharmacologic infusion, or recovery. 5. No reversible perfusion defects. No ischemia.. 6. Dilated left ventricle. The gated Cardiolite study reports an LVEF of 39%. This note was generated with [employer] software. It may contain incorrect words, spelling, and punctuation that were not noted in checking the note before signing.
== END | disposition home or self-care (01) ==
PROVIDERS: PCP Registered Nurse; Referring Provider Internal Medicine Cardiovascular Disease; Visit Provider Internal Medicine Cardiovascular Disease
DX: I42.9 Cardiomyopathy, unspecified (principal)
CPT/HCPCS: 78452; 93017; A9500; A4216; J2785

== ENCOUNTER → 2024-08-29 | Outpatient (CLI) | payer OTHER, SELFPAY ==
--- NOTE | 2024-08-29 09:36 | RAD_ITS ---
PROCEDURE: CHEST PA AND LATERAL 08/29/2024 REASON FOR EXAM: Shortness breath TECHNIQUE: CHEST PA AND LATERAL COMPARISON: None. FINDINGS: Hardware: None Heart: Normal size Mediastinum: Normal contour Lungs: Clear. No consolidating airspace disease. Bones: Unremarkable RAD/Chest PA and Lateral IMPRESSION: No acute findings. [facility]
== END | disposition home or self-care (01) ==
LOC: MTRAD 09:35
PROVIDERS: PCP Registered Nurse; Referring Provider Physician Assistant Surgical; Visit Provider Physician Assistant Surgical
DX: R06.02 Shortness of breath (principal)
CPT/HCPCS: 71046

== ENCOUNTER 2024-12-18 06:36 | Day surgery (SDC) | payer BC, SELFPAY ==
--- NOTE | 2024-12-13 13:27 | PAT.ANE_ITS ---
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 When Was Last Pacemaker Check QUESTION #4 FULL TEXT: You/Your Family Experience fever (hyperthermia) with Anesthesia Last Oral Intake Last Oral intake: Last Oral Intake NPO since Meds taken in AM with sips of water? Meds patient instructed to take am of surgery PONV PONV - automatic fancy machine operator: PONV - automatic fancy machine operator Female No 12/13/24 11:34 HX of Motion Sickness No 12/13/24 11:34 HX of N/V After Surgery No 12/13/24 11:34 Non-Smoker Yes 12/13/24 11:34 Duration of Surgery greater Yes 12/13/24 11:34 than 60 minutes Number of Risk Factors 2 12/13/24 11:34 PONV Score Moderate Risk 12/13/24 11:34 Height & Weight Height & Weight: Anesthesia: Height & Weight Height 5 ft 11 in 08/29/24 09:33 Respiratory Assessment Respiratory Assessment - automatic fancy machine operator: Respiratory Tract Infection Hx - automatic fancy machine operator Hx Respiratory Tract Infection No 12/13/24 11:34 STOP Sleep Apnea STOP Sleep Apnea - automatic fancy machine operator: STOP Sleep Apnea - automatic fancy machine operator Hx Hypertension Yes: PER PT, CONTROLLED ON 12/13/24 11:34 MEDS Hx Sleep Apnea Yes 12/13/24 11:34 CPAP No 12/13/24 11:34 BIPAP No 12/13/24 11:34 Do you snore loudly (louder than talking or can be heard Do you often feel tired/ fatigued/ sleepy during daytime? Has anyone observed you stop breathing during sleep? STOP Results Positive 12/13/24 11:34 QUESTION #5 FULL TEXT : Do you snore loudly (louder than talking or can be heard through closed doors)? 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 Specify any problems Hx of Preganancy in last 3 N/A 12/13/24 11:34 Months Nurse Filling Out Transfusion MGRIFFITH 12/13/24 11:34 & Questions: Date: 12/13/24 12/13/24 11:34 Time: 11:36 12/13/24 11:34 Patient unable to answer at this time (ie. confused, unrespo /Reproduction History /Reproductive History - automatic fancy machine operator: /Reproductive Hx- automatic fancy machine operator Hx Now Gestational Age (in weeks): EDC: Hx Hx Para Hx Section SAB PFSH Medical History (Updated 12/13/24 @ 11:49 by Abi Brooks) Wears glasses Open wound Diabetes Sleep apnea Non-smoker Leg cramps History of stress test History of echocardiogram Cardiology follow-up encounter Thoracic myofascial strain CHF (congestive heart failure) Knee pain HTN (hypertension) Home Medications ?Medication ?Instructions ?Recorded ?Last Taken ?Type bumetanide 2 mg tablet 2 mg PO DAILY 06/11/20 Unkno wn History ondansetron HCl 8 mg tablet 8 mg PO Q8H PRN nausea and 08/29/24 Unknown Rx vomiting #14 tabs potassium chloride 20 mEq 20 meq PO QDAY 08/29/24 Unkn own History tablet,extended release(part/cryst) tirzepatide 7.5 mg/0.5 mL 10 mg subcut QWEEK 08/29/24 12/09/24 History subcutaneous pen injector (Mounjaro) cyclobenzaprine 10 mg tablet 10 mg PO HS PRN muscle sp asm #14 09/04/24 Unknown Rx tabs losartan 50 mg tablet 50 mg PO BID 10/03/25 Unknow n History metoprolol succinate 25 mg 25 mg PO DAILY 12/13/24 Unk nown History tablet,extended release 24 hr spironolactone 25 mg tablet 25 mg PO QPM 12/13/24 Unkn own History Allergy/AdvReac Type Severity Reaction Status Date / Time glipizide AdvReac Hives Verified 12/13/24 11:26 Family History (Updated 04/01/19 @ 17:48 by Roz Medellin) Mother Heart disease Surgical History (Updated 12/13/24 @ 11:34 by Abi Brooks) History of foot surgery History of hand surgery Social History (Updated 04/01/19 @ 18:23 by Jeff SALES, PA) Smoking Status: Never smoker alcohol intake: never Audit: Pertinent Findings Pertinent Findings Stress test pertinent findings: 07/24/2024. No reversible perfusion defects. No ischemia. EF 39%. Echo (EF%) pertinent findings: 06/07/2024. EF 35% ?5%. Systolic function moderately reduced. Consult pertinent findings: Cardiology Dung Cabrera. 07/03/2024. Chronic diastolic heart failure. Mildly improved ejection fraction. Heart failure markers improving. Continue to monitor. Hypertension. Suggest continuing current therapy. Pulmonary function results/spirometer pertinent findings: Chest x-ray 08/29/2024. No acute findings. Recommendation Anesthesia Recommendation Anesthesia recommendation: OPTIMIZED for anesthesia
[2024-12-18] VITALS (12 sets, daily range): BP systolic 89–114; BP diastolic 54–94; PULSE 90–107; RESP 16–24; TEMP 36.1–36.8; O2SAT 4–98; BMI 50.9
--- NOTE | 2024-12-18 07:23 | PCM.PRE.AN2 ---
ASA Classification* ASA Classification ASA Classification: 3 Assessment & Plan Anesthesia* Anesthesia Assessment Anesthesia Assessment: Discussed sedation and/or anesthesia options, risks, benefits, and alternatives with patient/parents/legal guardian/POA. Questions invited. The patient/parents/legal guardian/POA seems to understand and agrees to proceed with anesthesia plan. Reviewed the physical assessment, medical history, allergy history and patient home medications list prior to surgery/procedure/anesthetic and documented any changes. Performed airway and anesthesia risk assessments. Anesthesia Type Anesthesia Type: General History Source History Obtained from:: Patient and Chart Anesthesia Focused Assessment* Oxygen Delivery Method: Room Air (Saturating well on room air. The patient states that has been in pain for past 2 months which causes him anxiety and sometimes he feels like it is hard to breathe. Given Dilaudid in preop dose. With significant improvement in pain and clinically improvement on his symptoms of feeling of shortness) Airway Assessment Mouth opens: >3 cm Mallampati Score: II Teeth Condition: Missing (Poor dentition with cavities) Neck Range of motion (ROM): Full ROM Labs Anesthesia Preop lab: CBC WBC, (4.4-11.0) 7.8 K/mm3 12/13/16, 07:38 RBC, (4.6-6.2) 5.77 M/mm3 12/13/16, 07:38 Hgb, (13.0-16.5) 16.0 g/dl 12/13/16, 07:38 Hct, (40-54) 51.0 % 12/13/16, 07:38 Plt Count, (150-450) 176 K/mm3 12/13/16, 07:38 CHEMISTRY Potassium, (3.5-5.1) 4.2 mmol/L 12/13/16, 07:38 Sodium, (136-145) 143 mmol/L 12/13/16, 07:38 Magnesium, (1.8-2.4) 1.9 mg/dL 12/13/16, 07:38 BUN, (7-18) 14 mg/dL 12/13/16, 07:38 Creatinine, (0.70-1.30) 0.73 mg/dL 12/13/16, 07:38 Glucose [facility], (70-110) 152 mg/dL H 08/29/24, 09:39 Glucose, (70-110) 100 mg/dL 12/13/16, 07:38 TSH, (0.358-3.74) 2.46 uIU/mL 12/13/16, 07:38 COAG Pre-Assessment Diagnosis/Proposed Procedure Planned Operative Procedure(s): (L) Cysto,Retrograde,Insertion Stent Anesthesia History 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 When Was Last Pacemaker Check QUESTION #4 FULL TEXT: You/Your Family Experience fever (hyperthermia) with Anesthesia Last Oral Intake Last Oral intake: Last Oral Intake NPO since Meds taken in AM with sips of water? Meds patient instructed to take am of surgery PONV PONV - construction checker: PONV - construction checker Female No 12/13/24 11:34 HX of Motion Sickness No 12/13/24 11:34 HX of N/V After Surgery No 12/13/24 11:34 Non-Smoker Yes 12/13/24 11:34 Duration of Surgery greater Yes 12/13/24 11:34 than 60 minutes Number of Risk Factors 2 12/13/24 11:34 PONV Score Moderate Risk 12/13/24 11:34 Height & Weight Height & Weight: Anesthesia: Height & Weight Height 5 ft 11 in 08/29/24 09:33 Respiratory Assessment Respiratory Assessment - construction checker: Respiratory Tract Infection Hx - construction checker Hx Respiratory Tract Infection No 12/13/24 11:34 STOP Sleep Apnea STOP Sleep Apnea - construction checker: STOP Sleep Apnea - construction checker Hx Hypertension Yes: PER PT, CONTROLLED ON 12/13/24 11:34 MEDS Hx Sleep Apnea Yes 12/13/24 11:34 CPAP No 12/13/24 11:34 BIPAP No 12/13/24 11:34 Do you snore loudly (louder than talking or can be heard Do you often feel tired/ fatigued/ sleepy during daytime? Has anyone observed you stop breathing during sleep? STOP Results Positive 12/13/24 11:34 QUESTION #5 FULL TEXT : Do you snore loudly (louder than talking or can be heard through closed doors)? 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 Specify any problems Hx of Preganancy in last 3 N/A 12/13/24 11:34 Months Nurse Filling Out Transfusion MGRIFFITH 12/13/24 11:34 & Questions: Date: 12/13/24 12/13/24 11:34 Time: 11:36 12/13/24 11:34 Patient unable to answer at this time (ie. confused, unrespo /Reproduction History /Reproductive History - construction checker: /Reproductive Hx- construction checker Hx Now Gestational Age (in weeks): EDC: Hx Hx Para Hx Section SAB Active Medications Active Medications: Current Medications Generic Name Dose Route Start Last Admin Trade Name Freq PRN Reason Stop Dose Admin Cefazolin Sodium 2 gm/ Sodium 110 mls @ 200 mls/hr 12/18/24 10:05 Chloride IV 12/18/24 10:37 INTRAOP ONE Lactated Ringer's 1,000 mls @ 15 mls/hr 12/18/24 07:00 IV .Q48H NIRAV PFSH Medical History Wears glasses Open wound Diabetes Sleep apnea Non-smoker Leg cramps History of stress test History of echocardiogram Cardiology follow-up encounter Thoracic myofascial strain CHF (congestive heart failure) Knee pain HTN (hypertension) Home Medications ?Medication ?Instructions ?Recorded ?Last Taken ?Type bumetanide 2 mg tablet 2 mg PO DAILY 06/11/20 Unknown History ondansetron HCl 8 mg tablet 8 mg PO Q8H PRN nausea and 08/29/24 Unknown Rx vomiting #14 tabs potassium chloride 20 mEq 20 meq PO QDAY 08/29/24 Unknown History tablet,extended release(part/cryst) tirzepatide 7.5 mg/0.5 mL 10 mg subcut QWEEK 08/29/24 12/09/24 History subcutaneous pen injector (Mounjaro) cyclobenzaprine 10 mg tablet 10 mg PO HS PRN muscle spasm #14 09/04/24 Unknown Rx tabs losartan 50 mg tablet 50 mg PO BID 12/13/24 12/18/24 06:00 History metoprolol succinate 25 mg 25 mg PO DAILY 12/13/24 12/18/24 06:00 History tablet,extended release 24 hr spironolactone 25 mg tablet 25 mg PO QPM 12/13/24 Unknown History Allergy/AdvReac Type Severity Reaction Status Date / Time glipizide AdvReac Hives Verified 12/18/24 07:17 Family History Mother Heart disease Surgical History History of foot surgery History of hand surgery Social History Smoking Status: Never smoker alcohol intake: never Review of Systems (Anesthesia) ROS Narrative System reviewed and no additional complaints, except as documented.
[2024-12-18] MEDS: Lactated Ringers 1,000 ML 15 ML IV (07:24)
[2024-12-18] MEDS: Cefazolin 1 GM/5 ML Vial 3 GM IV (08:15)
--- NOTE | 2024-12-18 08:20 | DCINST_ITS ---
Discharge Instructions DC O2, CPAP, BIPAP needs Home O2 Discharge instructions: No Dressing / Incision Discharge Activity: Return to Normal Activity and May Not Drive (while taking narcotic pain medications.) Dressing / Incision Call your doctor if you observe: Fever of 101 or Higher Follow Up Care Please Follow Up With: Mihai Rascon MD When: Call [phone] for an appointment Test Results: Test results from this visit will be discussed in further detail at your follow- up appointment, if applicable. Discharge Plan Admission Primary Reason for Your Visit: kidney stones bilateral Attending Provider: Mihai Rascon Primary Care Provider: Carrie Smith NP Instructions Print Language: Nepali Discharge Orders/Prescriptions Prescriptions: New cephalexin 500 mg capsule 500 mg PO Q6H Qty: 28 0RF phenazopyridine [Pyridium] 200 mg tablet 200 mg PO TID Qty: 14 0RF tamsulosin [Flomax] 0.4 mg capsule 0.4 mg PO DAILY Qty: 10 0RF oxycodone 5 mg tablet 10 mg PO Q6H PRN (Reason: pain) 7 Days Qty: 30 0RF Continued Mounjaro 7.5 mg/0.5 mL pen injector 10 mg subcut QWEEK potassium chloride 20 mEq tablet,ER particles/crystals 20 meq PO QDAY ondansetron HCl 8 mg tablet 8 mg PO Q8H PRN (Reason: nausea and vomiting) Qty: 14 0RF cyclobenzaprine 10 mg tablet 10 mg PO HS PRN (Reason: muscle spasm) Qty: 14 0RF bumetanide 2 MG tablet 2 mg PO DAILY losartan 50 mg tablet 50 mg PO BID spironolactone 25 mg tablet 25 mg PO QPM metoprolol succinate 25 mg tablet extended release 24 hr 25 mg PO DAILY Referrals / Follow Up: Mihai Rascon MD [Med Staff - Active Staff, Urology] Carrie Smith NP, PUBLIC RELATIONS CONSULTANT-C [Primary Care Provider, Family Practice] Disposition Disposition (needs filled in before D/C Order can be placed): Home, Self Care
[2024-12-18] MEDS: Lidocaine 1% (5 ml sdv) 5 ML Vial IV (08:23)
--- NOTE | 2024-12-18 09:08 | PCM.OPRPT ---
Operative Report (Standard) Operative Information Date of Procedure: 12/18/24 Pre-Operative Diagnosis: Bilateral kidney stones Post-Operative Diagnosis: The same Surgery/Procedure Performed: Cystoscopy, left retrograde pyelogram, left ureteroscopy laser lithotripsy of stone and left stent placement, Right retrograde pyelogram and right stent placement conference center manager: No Type of Anesthesia: General RN Documented Start/Stop Times: Operation Date: 12/18/24 09:00 Case Time Into Pre-Op 12/18/24 06:55 Out of Pre-Op 12/18/24 08:04 Anesthesia Start 12/18/24 08:11 Into Room 12/18/24 08:11 Procedure Start 12/18/24 08:34 Procedure Start Time: 08:34 Procedure Stop Time: 09:09 Select all DRAINS/GRAFTS/IMPLANTS that apply: Drains Drain details: 6 x 26 stents bilaterally Estimated Blood Loss: None Specimen collected: No Description of surgery: Indication this is a 54-year-old male presented for surgery today he was extremely painful states that he is having pain on both sides in my office when I reviewed the CAT scan he had an obstructing stone in the proximal left ureter but he did have a large stone in the right kidney as well he states he is having lots of pain on both sides and wished to have both sides done told the patient we would stage the procedure and do the left side first today and then bring him back to the right side at a separate setting there is a higher risk of doing both sides at the same time explained to the patient he was reluctant but agreeable with this. So he signed the consent form organ to proceed with ureteroscopy laser lithotripsy of the left kidney stones and stent placement bilaterally with retrogrades Patient was taken back to the operating room after smooth induction of anesthesia he was placed in dorsolithotomy position. Penis and testicles were prepped and draped in usual fashion went into the bladder with a 21 Trinidadian rigid cystourethroscope cannulated the left ureteral orifice with a 5 Trinidadian open-ended Pollick catheter and a Glidewire pulled back the Glidewire and then injected contrast through the Pollick catheter contrast went along the course of the ureter all the way up to the kidney really could not see a stone in the left side but we knew that there was stone on CAT scan no obvious obstruction at the time of the retrograde. I then left this wire went and then over the wire we had went in with an 8 Trinidadian flexible Olympus ureteroscope was able to get in the ureter quite easily went all the way up the ureter without any difficulty and then reached this left kidney once I got inside the left kidney I did flexible ureteroscopy inspected upper pole midpole lower pole of essentially found a large stone in the renal pelvis and the left side I then used a 270 ?m laser fiber there was a thulium laser and the stone was lasered completely into small little pieces energy settings but 100 Hz 0.2 J after successfully lasering the stone with minimal irrigation pressure I then worked my way down the ureter no injury or trauma or or problems along the course of the ureter I then put a wire up in the left side and then we placed a stent on the left side. I then went to the right side cannulated the right ureter first with a Pollick catheter and the Glidewire injected contrast contrast went all the way up the ureter without any obstruction he can see contrast go to the UPJ and into the renal pelvis look like there is a filling defect in the lower pole of the right kidney but no obstruction on the right side so at this point the plan was to place a stent in the right so the stent was advanced over the wire and then placed in the right side once the stent was in good position then pulled the wire and the stent coiled in the kidney and bladder in good position no stents were in place patient anesthetic reversed plan to see him next week for checkup and then we will get him set up for following surgery to laser the stone on the right side and remove the stent on the left side. He will be discharged home today with antibiotics pain medicine Pyridium Flomax follow-up in the office within 1 week for checkup. Surgical Findings: Stone in the left renal pelvis lasered completely stents placed on both sides Complications Complications: No Admit VTE Documentation VTE Present on Admission: No VTE Mechan Device Prophylaxis: SCD's VTE Pharm Prophylaxis ordered?: No
[2024-12-18] MEDS: fentaNYL 100 MCG/2 ML Ampul IV (09:17)
--- NOTE | 2024-12-18 09:27 | PCM.POST.ANE ---
Anesthesia: Postop Eval I Current Vital Signs Temperature: 97.7 F Pulse Rate: 102 Blood Pressure: 114/65 Respiratory Rate: 18 Pulse Ox: 93 Assessment Airway patent: Yes Spontaneous unlabored respirations: Yes nausea: No Vomiting: No Anesthesia Complication: No Fluid Hydration Crystalloid volume administer (ml): 900 Total IV fluid infused: 900 Progress Note Anesthesia document: Postop Eval 1 completed: Yes
[2024-12-18] MEDS: Ketorolac 30 MG/ML Syringe IV (09:47)
[2024-12-18] MEDS: Lactated Ringers 1,000 ML 100 ML IV (09:48)
--- NOTE | 2024-12-18 12:30 | POSTOPAN2_ITS ---
Anesthesia Postop Eval I Sum Postop Eval Completion status Anesthesia document: Postop Eval 1 completed: Yes Anesthesia Postop Eval I Summary Anesthesia Postop Eval I Summary: Anesthesia Postop Eval I: Assessment Summary Airway patent Yes 12/18/24 09:27 [email or web address] [email or web address] Spontaneous unlabored Yes 12/18/24 09:27 GEOGRAPHY HEAD.SHOF respirations Mental status nausea No 12/18/24 09:27 GEOGRAPHY HEAD.SHOF Vomiting No 12/18/24 09:27 GEOGRAPHY HEAD.SHOF Anesthesia Postop Eval I: Fluid Summary Crystalloid volume administer 900 12/18/24 09:27 GEOGRAPHY HEAD.SHOF (ml) Colloids volume administered ( ml) Blood Product volume administered (ml) Total IV fluid infused 900 12/18/24 09:27 GEOGRAPHY HEAD.SHOF Anesthesia Postop Eval I: Summary Notes Anesthesia Complication No 12/18/24 09:27 GEOGRAPHY HEAD.SHOF Anesthesia Complication Comment: Post-operative progress note Anesthesia: Postop Eval II Evaluation Mental status: Awake and Calm Pain Level: 1 nausea: No Vomiting: No Complications Anesthesia Complication: No
--- NOTE | 2024-12-18 12:30 | PCM.POSTANE2 ---
Anesthesia Postop Eval I Sum Postop Eval Completion status Anesthesia document: Postop Eval 1 completed: Yes Anesthesia Postop Eval I Summary Anesthesia Postop Eval I Summary: Anesthesia Postop Eval I: Assessment Summary Airway patent Yes 12/18/24 09:27 FUR [email or web address] Spontaneous unlabored Yes 12/18/24 09:27 FUR [email or web address] respirations Mental status nausea No 12/18/24 09:27 FUR [email or web address] Vomiting No 12/18/24 09:27 FUR [email or web address] Anesthesia Postop Eval I: Fluid Summary Crystalloid volume administer 900 12/18/24 09:27 FUR POINTER.SHOF (ml) Colloids volume administered ( ml) Blood Product volume administered (ml) Total IV fluid infused 900 12/18/24 09:27 FUR [email or web address] Anesthesia Postop Eval I: Summary Notes Anesthesia Complication No 12/18/24 09:27 FUR [email or web address] Anesthesia Complication Comment: Post-operative progress note Anesthesia: Postop Eval II Evaluation Mental status: Awake and Calm Pain Level: 1 nausea: No Vomiting: No Complications Anesthesia Complication: No
== END 2024-12-18 13:45 | disposition home or self-care (01) ==
LOC: SDC 06:38 → AC 06:38
PROVIDERS: PCP Registered Nurse; Referring Provider Urology; Visit Provider Urology
PROC: (CPT 52332; principal; 2024-12-18 08:50)
DX: N20.2 Calculus of kidney with calculus of ureter (principal); I50.9 Heart failure, unspecified; I11.0 Hypertensive heart disease with heart failure; E66.01 Morbid (severe) obesity due to excess calories; E11.9 Type 2 diabetes mellitus without complications; Z79.899 Other long term (current) drug therapy
CPT/HCPCS: 52356; 00873; 76000; 82962; C1769; C2617; J2405

== ENCOUNTER → 2025-02-25 | Outpatient (CLI) | payer BC, SELFPAY ==
--- NOTE | 2025-02-25 14:20 | CYSPIN_PTH ---
PATIENT: KENYON BROWN LOC: [facility] U#:[id number] AGE/SX: 54/M ROOM: RE02/25/[address]: Dr. Jonh Peng MD : 1970 BED: DIS: 02/25/2025 SPEC #: [id number] RECD: 02/25/25 15:08 STATUS: JOHAN JOSE #: [id number] LOUIS: 02/25/25 14:[address]: Jonh Peng DEPT: CYTOLOGY RECD BY: Baldemar Sorensen ENTERED: 02/26/25 09:31 SP TYPE: CYSPIN CHILANGO ARRIOLA DR: Carrie Smith, ROOF BOLTER OPERATOR-C Tissues: A - Thyroid gland, NOS Procedures: Pap Stain (control) Special Stain Group II Diff Quik Stain (control) Cytospin Fluid Cytology Other HEADER OPERATION: Fine needle aspiration of left thyroid nodule PRE-OP DIAGNOSIS: Left thyroid nodule TISSUE SUBMITTED: A- Left mid thyroid nodule DIAGNOSIS CYTOLOGY A. Left mid thyroid nodule, FNA: * No malignant cells are identified * Benign (consistent with benign follicular nodule) CYTOLOGY STUDY Slides are reviewed. CYTOLOGY GROSS A. Received is 30 ml of cytolyt with particles and 4 smears labeled with the patient's name and and designated per the requisition as Left mid thyroid nodule. Submitted for cytology and cytospin. Mr 02/26/2025 CPT: 60602,56533
== END | disposition home or self-care (01) ==
LOC: LABSPEC 15:38
PROVIDERS: PCP Registered Nurse; Referring Provider Surgery; Visit Provider Surgery
DX: E04.1 Nontoxic single thyroid nodule (principal)
CPT/HCPCS: 88108; 88161; 88313